=== PATIENT | female | born 1945 | race Caucasian/White ===

== ENCOUNTER → 2018-03-24 | Outpatient (CLI) | payer BC, MEDICARE ==
[~2018-03-24] MED LIST: IOHEXOL 180 MG/ML 10 ML VIAL.; LIDOCAINE 1% PF 2 ML VIAL.; methylPREDNISolone ACETATE 40 MG/ML VIAL.; methylPREDNISolone ACETATE 80 MG/ML VIAL.
== END | disposition home or self-care (01) ==
LOC: PNCL 07:55
DX: M51.16 Intervertebral disc disorders with radiculopathy, lumbar region (principal)
CPT/HCPCS: 62323; J1030; J1040; Q9965

== ENCOUNTER → 2019-06-18 | Outpatient (CLI) | payer BC, MEDICARE ==
[~2019-06-18] MED LIST changes: +ATOR20TA58 PO; +HYDR-2765 PO; -IOHEXOL 180 MG/ML 10 ML VIAL.; +IOHEXOL 180 MG/ML 10 ML VIAL. ONE; +LEVO75TA5 PO; -LIDOCAINE 1% PF 2 ML VIAL.; +LOSA1TAB22 PO; +POTA20TA4 PO; +RALO60TA10 PO; +TIZA4CAP PO; -methylPREDNISolone ACETATE 40 MG/ML VIAL.; +methylPREDNISolone ACETATE 40 MG/ML VIAL. ONE; -methylPREDNISolone ACETATE 80 MG/ML VIAL.; +methylPREDNISolone ACETATE 80 MG/ML VIAL. ONE
--- NOTE | 2019-06-18 10:12 | PAIN ---
DATE OF SERVICE: 06/18/2019 PROGRESS NOTE FOR PAIN CLINIC DIAGNOSES: Lumbar radiculopathy with lumbar herniated disk, lumbar degenerative disk disease. HISTORY OF PRESENT ILLNESS: The patient is a 74-year-old female who returns for followup status post lumbar epidural steroid injections, last seen 03/2018. The patient did very well with about 80% improvement for several months following the injection, but reports the pain is returning now in the low back, greater on the left lower extremity than the right; in the lateral thighs; posterior gluteus; lateral anterior thighs, medial thigh, more on the left side. The patient reports it is on and off in intensity, worse with walking, standing, changing positions, mostly exacerbated by working. She is on her feet 8 hours' shift. The patient reports the pain is 7 on a scale of 10 at its worst over the past week, 7 on average, 2 at its least, and is a 7 today. The patient reports no new motor or sensory deficits; no new bowel or bladder incontinence; better with sitting or lying down; does not generally awaken her from sleep at night, but worse with walking, standing, changing positions. The patient has had no new other diagnostic studies or other modalities at this time. PHYSICAL EXAMINATION: VITAL SIGNS: The patient's blood pressure 173/83, pulse 81, respirations 18, temperature 98.1 degrees Fahrenheit, height is 5 feet 4 inches, weight is 212 pounds. GENERAL: The patient is awake, alert, oriented, appropriate, very pleasant demeanor. HEENT: Shows normocephalic, atraumatic. Extraocular movements are intact and symmetrical. Oral cavity: Mucous membranes moist and pink. Dentition is intact. NECK: Shows anterior throat supple without palpable lymphadenopathy noted. Swallow reflex symmetrical. CHEST: Shows normal on inspection. Breath sounds clear to auscultation bilaterally. HEART: Shows S1, S2 clear. No murmurs auscultated. ABDOMEN: Soft, nontender, nondistended. No palpable organomegaly is noted. BACK: Shows spine grossly in the midline. Normal-appearing thoracic kyphosis and minor flattening of the lumbar lordotic curvature. Lumbar paraspinous muscle shows symmetrical on inspection. With palpation shows some mild tenderness diffusely throughout the upper, middle, and lower distribution of paraspinous muscles, but only diffusely without radiation. The patient has good rotational motion of lumbar spine, both laterally as well as extension and flexion without difficulty. EXTREMITIES: Lower extremities show deep tendon reflexes 1+ in the patellar and tendo calcaneus tendons. Motor exam is strong with 5/5 dorsiflexion, extension, quadriceps, hamstring flexion symmetrical. Peripheral pulses are 1+ posterior tibia. No peripheral edema is noted bilaterally. Options were discussed with the patient. The patient's old chart was reviewed as her current medication regimen updated. Current review of systems updated today as well. We will proceed with a lumbar epidural steroid injection today with fluoroscopic guidance. Risks were again discussed including, but not limited to bleeding, infection, possibility of epidural hematoma, subsequent neurological compromise, dural puncture, headaches, spinal cord and/or nerve damage, side effects of steroid medication, and poor results regarding pain control. The patient understands and wished to proceed. The patient will return to the clinic in approximately 2 weeks for followup. She was counseled on return appointment, activity level, and side effects to be aware of. DIAGNOSES: Lumbar radiculopathy with lumbar herniated disk, lumbar degenerative disk disease. PROCEDURE: Lumbar epidural steroid injection, translaminar approach to L4-L5 level using C-arm fluoroscopic guidance under sterile prep and drape using local anesthetic. MEDICATION INJECTED: A total of 120 mg Depo-Medrol plus 10 mL of preservative-free normal saline and 2 mL of contrast. CONDITION AT DISCHARGE: Stable. The patient tolerated procedure well, had no complications. RETA CUMMINGS MD DR: ALISA/rufus JOB#: [id number] / [id number]
== END ==
LOC: PNCL 08:54
PROVIDERS: ATTEND Anesthesiology
DX: M51.16 Intervertebral disc disorders with radiculopathy, lumbar region (principal)
CPT/HCPCS: 62323; J1030; J1040; Q9965